=== PATIENT | male | born 1960 | race Asian ===

== ENCOUNTER 2022-01-15 15:28 | Emergency (ER) | payer BC ==
[~2022-01-15] VITALS: Ht 170.2 cm; Wt 61.0 kg
[2022-01-15 15:45] VITALS: BP 113/71
[2022-01-15] MEDS ORDERED: VISCOUS LIDOCAINE 2% 15 ML UDC MM PRN (17:00)
== END 2022-01-15 18:04 | disposition home or self-care (01) ==
LOC: ER 15:28
DX: Z43.1 Encounter for attention to gastrostomy (principal)
CPT/HCPCS: 43762; 99284

== ENCOUNTER 2022-01-16 06:57 | Emergency (ER) | payer BC, MEDICAID ==
[~2022-01-16] VITALS: Ht 170.2 cm; Wt 61.0 kg
[2022-01-16] MEDS ORDERED: SODIUM CHLORIDE 0.9% 1,000 ML IV ONE (09:00)
[2022-01-16 09:26] LABS: EOSINOPHILS % 3.1 % (0.0-5.0); HEMOGLOBIN. 11.1 g/dL (14.0-18.0); LYMPHOCYTES % 12.4 % (20.0-50.0); MEAN CORPUSCULAR HEMOGLOBIN 30.2 pg (28.0-32.0); MEAN PLATELET VOLUME 7.3 fl (7.4-10.4); MONOCYTES % 8.3 % (2.0-8.0); NEUTROPHILS % 75.2 % (40.0-76.0); PLATELET 182 x1000/uL (130-400); RED BLOOD CELL COUNT 3.66 mill/uL (4.7-6.1); RED CELL DISTRIBUTION WIDTH 15.2 % (11.6-14.6)
[2022-01-16 09:38] LABS: PARTIAL THROMBOPLASTIN TIME 27.6 sec (23.4-31.0); PROTHROMBIN TIME 10.3 sec (9.6-11.0)
[2022-01-16] MEDS ORDERED: LIDOCAINE HCL 1% 10 MG/ML 10ML VIAL ONE (09:42)
[2022-01-16] MEDS ORDERED: LIDOCAINE HCL 2% JELLY 5ML ONE (09:42)
[2022-01-16] MEDS ORDERED: IOHEXOL-300 50 ML BOTTLE IV ONE (09:43)
[2022-01-16 11:27] VITALS: BP 128/87
== END 2022-01-16 11:28 | disposition home or self-care (01) ==
LOC: ER 06:57
DX: K94.29 Other complications of gastrostomy (principal); E11.9 Type 2 diabetes mellitus without complications; I10 Essential (primary) hypertension; E78.00 Pure hypercholesterolemia, unspecified; Z85.01 Personal history of malignant neoplasm of esophagus; Z20.822 Contact with and (suspected) exposure to COVID-19; Y83.3 Surgical operation with formation of external stoma as the cause of abnormal reaction of the patient, or of later complication, without mention of misadventure at the time of the procedure; Y92.018 Other place in single-family (private) house as the place of occurrence of the external cause
CPT/HCPCS: 36415; 36598; 49450; 85025; 85610; 85730; 87426; 96360; 96361; 99283; C1769; C9803; J3490; J7030; Q9967; Z7610